=== PATIENT | female | born 1985 | race African-American/Black ===

== ENCOUNTER 2016-07-25 08:25 | Emergency (ER) | payer OTHER ==
[2016-07-25 08:45] VITALS: BP 120/75; PULSE 76; TEMP 98.3; BMI 34.4
[2016-07-25 09:57] LABS: BASOPHIL 0.8 % (0-2.0); EOSINOPHIL 0.7 % (0-4.5); MCH 28.2 pg (25.7-33.7); MCHC 33.6 g/dl (32.0-36.0); MEAN CELL VOLUME 83.9 fl (80-96); MEAN PLT VOLUME 7.5 fl (7.5-11.1); NEUTROPHILS 67.1 % (42.8-82.8); PLATELET COUNT 364 K/MM3 (134-434); RDW 14.6 % (11.6-15.6); WHITE BLOOD COUNT 6.6 K/mm3 (4.0-10.0)
--- NOTE | 2016-07-25 09:57 | PDOC ---
History of Present Illness - General Chief Complaint: Vaginal Bleeding Stated Complaint: VAGINAL BLEEDING(5 WKS ) Time Seen by Provider: 07/25/16 09:03 History Source: Patient Exam Limitations: No Limitations - History of Present Illness Travel History: No Initial Comments: 07/25/16 10:23 Patient states last normal menstrual period was June 20, when after 2 weeks was feeling breast tenderness, bloating, and some nausea with tiredness was concerned about possible . States took 2 home tests that prove positive. Last states had some spotting, but woke up this morning with cramping and a "gush of blood" vaginally with some noted clots and gelatinous tissue noted in toilet. Denies fever, any recent trauma or exercise changes, no problems with bowels or bladder. Has some abdominal cramping persistent with bleeding and wonders if possible miscarriage. 4 para 2 spontaneous Ab1 3 years ago. 07/25/16 10:24 Timing/Duration: reports: getting worse Quality: reports: mild, moderate, cramping Pain Radiation: reports: no radiation Activities at Onset: reports: none Past History - Travel Traveled outside of the country in the last 30 days: No Close contact w/someone who was outside of country & ill: No - Past Medical History Allergies/Adverse Reactions: Allergies Allergy/AdvReac Type Severity Reaction Status Date / Time No Known Allergies Allergy Verified 07/25/16 08:42 Home Medications: Ambulatory Orders NK [No Known Home Medication] 07/25/16 Asthma: No Cancer: No Cardiac Disorders: No Diabetes: No HTN: No Seizures: No Thyroid Disease: No Other medical history: none - Surgical History Abdominal Surgery: Yes (hernia repair) - Reproductive History (#): 4 Para: 1 Therapeutic (s) & number: Yes (1) Spontaneous : 1 - Immunization History Td Vaccination: Yes Immunization Up to Date: Yes - Psycho/Social/Smoking Cessation Hx Anxiety: No Suicidal Ideation: No Smoking Status: No Smoking History: Never smoked Years of Tobacco Use: 0 Have you smoked in the past 12 months: No Number of Cigarettes Smoked Daily: 0 Cigars Per Day: 0 Information on smoking cessation initiated: No Hx Alcohol Use: No Drug/Substance Use Hx: No Substance Use Type: None Hx Substance Use Treatment: No Review of Systems - Review of Systems Able to Perform ROS?: Yes Is the patient limited Nauruan proficient: Yes Constitutional: Yes: Symptoms Reported, See HPI, Malaise HEENTM: Yes: Symptoms Reported, See HPI Respiratory: Yes: Symptoms reported ABD/GI: Yes: Symptoms Reported : Yes: Symptoms Reported, See HPI All Other Systems: Reviewed and Negative *Physical Exam - Vital Signs Last Vital Signs Temp Pulse Resp BP Pulse Ox 98.3 F 76 18 120/75 100 07/25/16 08:42 07/25/16 08:42 07/25/16 08:42 07/25/16 08:42 07/25/16 08:42 - Physical Exam General Appearance: Yes: Nourished, Appropriately Dressed, Apparent Distress, Mild Distress HEENT: positive: VERNON, Normal ENT Inspection, TMs Normal, Pharynx Normal Neck: positive: Tender, Supple Respiratory/Chest: positive: Lungs Clear, Respiratory Distress Cardiovascular: positive: Regular Rate Female Pelvic Exam: positive: normal external exam, discharge, vaginal bleeding. negative: cervical os closed (uncertain / soft cervix, ), CMT Gastrointestinal/Abdominal: positive: Tender (mild tenderness to suprapubic ), Soft Musculoskeletal: positive: Normal Inspection. 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 *DC/Admit/Observation/Transfer Diagnosis at time of Disposition: Vaginal bleeding before 22 weeks gestation - Discharge Dispostion Disposition: HOME Condition at time of disposition: Stable Admit: No - Referrals Referrals: STAFF,NOT ON [Primary Care Provider] - Freedom Marino MD [Staff Physician] - - Patient Instructions Printed Discharge Instructions: DI for Vaginal Bleeding During Additional Instructions: Will need to return to emergency department this weekend - 2 days- for repeat beta hCG and ultrasound to confirm intrauterine versus a miscarriage. 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
[2016-07-25 10:06] LABS: URINE APPEARANCE CLEAR; URINE BILIRUBIN NEGATIVE (NEGATIVE); URINE COLOR YELLOW; URINE GLUCOSE (UA) NEGATIVE (NEGATIVE); URINE KETONE NEGATIVE (NEGATIVE); URINE LEUK ESTERASE NEGATIVE (NEGATIVE); URINE NITRITE NEGATIVE (NEGATIVE); URINE UROBILINOGEN NEGATIVE E.U./dl (0.2-1.0)
[2016-07-25 10:46] LABS: URINE BLOOD 3+ (NEGATIVE); URINE PROTEIN 1+ (NEGATIVE)
[2016-07-25 11:11] LABS: URINE BACTERIA RARE /hpf (NONE SEEN); URINE MUCUS RARE; URINE RBC 728 /hpf (0-3); URINE WBC 7 /hpf (3-5)
== END 2016-07-25 12:18 | disposition home or self-care (01) ==
LOC: JERFT 08:25
DX: O20.8 Other hemorrhage in early pregnancy (principal); Z3A.01 Less than 8 weeks gestation of pregnancy
CPT/HCPCS: 36415; 76817-TC; 76856-TC; 81003; 81015; 84702; 85025; 86850; 86900; 86901; 99281-25

== ENCOUNTER 2019-04-11 09:09 | Emergency (ER) | payer OTHER ==
[2019-04-11 09:22] VITALS: BP 124/79; PULSE 88; TEMP 98.6; BMI 37.5
--- NOTE | 2019-04-11 09:29 | PDOC ---
History of Present Illness - General Chief Complaint: Vaginal Bleeding Stated Complaint: 6 W PREG/VAG BLEEDING Time Seen by Provider: 04/11/19 09:28 - History of Present Illness Initial Comments: The pt is a 33F at approx 6wks by LMP who presents for evaluation of 1 day fo pelvic cramping and vaginal bleeding. The pt reports going to the bathroom last night and seeing blood in the toilet with a sac-like structure. She states the bleeding and cramping has since resolved. Denies fevers/chills, chest pain, N/V/C/D, dysuria, trouble breathing 04/11/19 09:57 Past History - Past Medical History Allergies/Adverse Reactions: Allergies Allergy/AdvReac Type Severity Reaction Status Date / Time No Known Allergies Allergy Verified 07/25/16 08:42 Home Medications: Ambulatory Orders Cephalexin Monohydrate [Keflex -] 500 mg PO Q6H #28 capsule 04/11/19 Asthma: No Cancer: No Cardiac Disorders: No Diabetes: No HTN: No Seizures: No Thyroid Disease: No - Surgical History Abdominal Surgery: Yes (hernia repair) - Reproductive History (#): 4 Para: 1 Therapeutic (s) & number: Yes (1) Spontaneous : 1 - Immunization History Td Vaccination: Yes Immunization Up to Date: Yes - Psycho Social/Smoking Cessation Hx Smoking Status: No Smoking History: Never smoked Years of Tobacco Use: 0 Have you smoked in the past 12 months: No Number of Cigarettes Smoked Daily: 0 Cigars Per Day: 0 Hx Alcohol Use: No Drug/Substance Use Hx: No Substance Use Type: None Hx Substance Use Treatment: No Review of Systems - Review of Systems Able to Perform ROS?: Yes Comments:: GENERAL/CONSTITUTIONAL: No fever or chills. No weakness HEAD, EYES, EARS, NOSE AND THROAT: No change in vision. No change in hearing. No sore throat CARDIOVASCULAR: No chest pain or shortness of breath RESPIRATORY: Denies cough, hemoptysis GASTROINTESTINAL: No nausea, vomiting, diarrhea or constipation GENITOURINARY: No dysuria MUSCULOSKELETAL: No joint or muscle swelling or pain. No neck or back pain SKIN: No rash NEUROLOGIC: No headache, vertigo, loss of consciousness, or change in strength/ sensation ENDOCRINE: No increased thirst. No abnormal weight change HEMATOLOGIC/LYMPHATIC: No anemia, easy bleeding, or history of blood clots ALLERGIC/IMMUNOLOGIC: No hives or skin allergy 04/11/19 09:28 Is the patient limited Kosovan proficient: No *Physical Exam - Vital Signs Last Vital Signs Temp Pulse Resp BP Pulse Ox 98.6 F 88 16 124/79 99 04/11/19 09:20 02 09:20 02 09:20 04/11/19 09:20 04/11/19 09:20 - Physical Exam GENERAL: Awake, alert, and oriented to person/place/time, in no acute distress HEAD: No signs of trauma, normoc ephalic, atraumatic EYES: PERRLA, EOMI, sclera anicteric, conjunctiva clear ENT: Hearing grossly normal, nares patent, oropharynx clear without exudates. Moist mucosa LUNGS: No distress, speaks in full sentences, clear to auscultation bilaterally HEART: Regular rate and rhythm, normal S1 and S2, no murmurs appreciated, peripheral pulses normal and equal bilaterally ABDOMEN: Soft, nontender, normoactive bowel sounds. No guarding, no rebound EXTREMITIES: Normal inspection, Normal range of motion, no edema. No clubbing or cyanosis NEUROLOGICAL: Cranial nerves II through XII grossly intact. Normal speech, normal gait, no focal sensorimotor deficits SKIN: Warm, Dry Pelvic External genitalia unremarkable. Speculum exam with fluid in vaginal vault w/o blood, also evidence of yeast infection seen Cervical os open w/o CMT 04/11/19 09:28 ED Treatment Course - LABORATORY CBC & Chemistry Diagram: 04/11/19 09:40 04/11/19 09:40 - RADIOLOGY Radiograph Interpretation: US/TRANSVAGINAL US PREG LMP: 02/21/2019 Compared to prior examination dated 07/25/2016 The uterus is gravid measuring 11.8 x 7.5 m in sagittal and AP dimension. An intrauterine gestational sac like structure is present with a tiny yolk sac and pole are identified. Yolk sac measures 2 mm. pole measures 6 mm compatible with 6 weeks 3 days of gestation. heart rate is 120 bpm There is an anterior myometrial mass in the uterine body measuring 2.4 x 2.2 cm and another anterior myometrial mass measuring 2.3 x 2 cm compatible with fibroids. Normal-appearing left ovary measuring 4.1 x 1.8 cm with normal vascular flow. Normal appearing right ovary measuring 3.1 x 1.8 cm with normal vascular flow. There is no free fluid in the cul-de-sac IMPRESSION: Single live intrauterine with estimated gestational age of 6 weeks 3 days. Fibroid uterus. Both ovaries appear unremarkable with normal vascular flow 04/11/19 11:32 Medical Decision Making - Medical Decision Making The pt is a 33F at approx 6wks by LMP who presents for evaluation of 1 day fo pelvic cramping and vaginal bleeding. ED Course Labs sent Fluconazole for candidiasis TVUS 04/11/19 10:11 UA w/ asymptomatic bactiuria -Will treat with Keflex 500mg Q6H for 7 days Rh + TVUS w/ single IUP at 6wks and 3 days with FHT 120 Pt w/o active bleeding Plan for D/C w/ OBGYN f/u Discharge instructions and return precautions given Patient in agreement and verbalized understanding Dispo: Home 04/11/19 11:39 Discharge - Discharge Information Problems reviewed: Yes Clinical Impression/Diagnosis: Vaginal candidiasis, Threatened Disposition: HOME - Admission No - Additional Discharge Information Prescriptions: Cephalexin Monohydrate [Keflex -] 500 mg PO Q6H #28 capsule - Follow up/Referral Referrals: Miguel Ackerman MD [Primary Care Provider] - Yaya Gant MD [Staff Physician] - - Patient Discharge Instructions Patient Printed Discharge Instructions: DI for Threatened , DI for Urinary Tract Infection (UTI) Additional Instructions: You were seen in the Emergency Department for evaluation for vaginal bleeding. Your ultrasound was notable for a intrauterine . It is possible that you will have a miscarriage in the next few days. You were also found to have a urinary tract infection, a prescription for Keflex was sent to your pharmacy, take 4 times a day for the next 7 days. It is important to follow up with your OBGYN or the OBGYN referral provided this week. Review the handout provided at discharge. Return to the Emergency Department if you develop recurrent bleeding, worsening cramping, dizziness, chest pain, trouble breathing, fevers, worsening symptoms, or any new/concerning symptoms. - Post Discharge Activity
[2019-04-11] MEDS ORDERED: FLUCONAZOLE 50 MG TABLET PO ONE (10:10)
[2019-04-11 10:14] LABS: BASO % 0.8 % (0-2.0); EOS % 1.9 % (0-4.5); HEMATOCRIT 38.9 % (32.4-45.2); MCH 28.6 pg (25.7-33.7); MCHC 33.5 g/dl (32.0-36.0); MEAN CELL VOLUME 85.5 fl (80-96); MEAN PLT VOLUME 7.7 fl (7.5-11.1); NEUT % 67.3 % (42.8-82.8); PLATELET COUNT 401 K/MM3 (134-434); RBC 4.54 M/mm3 (3.60-5.2); RDW 14.3 % (11.6-15.6); WHITE BLOOD COUNT 8.2 K/mm3 (4.0-10.0)
[2019-04-11] MEDS ORDERED: FLUCONAZOLE 150 MG TABLET PO ONE (10:35)
[2019-04-11 10:49] LABS: ALBUMIN 3.6 g/dl (3.4-5.0); BILIRUBIN,TOTAL 0.4 mg/dL (0.2-1); BLOOD UREA NITROGEN 9.2 mg/dL (7-18); CALCIUM 9.1 mg/dL (8.5-10.1); CREATININE 0.8 mg/dL (0.55-1.3); POTASSIUM 3.8 mmol/L (3.5-5.1); TOT PROT 7.7 g/dl (6.4-8.2)
[2019-04-11 11:15] LABS: EPI CELLS 19.6 /HPF (0-5/HPF); HYALINE CASTS 13 /lpf (0-8); PH,URINE 7.5 (5.0-8.0); URINE APPEARANCE CLOUDY; URINE BACTERIA 1159.3 /hpf (NEGATIVE); URINE BILIRUBIN NEGATIVE (NEGATIVE); URINE COLOR YELLOW; URINE GLUCOSE (UA) NEGATIVE (NEGATIVE); URINE KETONE NEGATIVE (NEGATIVE); URINE LEUK ESTERASE NEGATIVE (NEGATIVE); URINE NITRITE NEGATIVE (NEGATIVE); URINE PROTEIN NEGATIVE (NEGATIVE); URINE RBC 5 /hpf (0-4); URINE WBC 3 /hpf (0-5)
--- NOTE | 2019-04-11 11:40 | PDOC ---
Documentation entered by Mike Ryan SCRIBE, acting as scribe for Israel Gonzalez MD. Israel Gonzalez MD: This documentation has been prepared by the Connor oliveira Nirvannie, SCRIBE, under my direction and personally reviewed by me in its entirety. I confirm that the documentation accurately reflects all work, treatment, procedures, and medical decision making performed by me. Attending Attestation - Resident Resident Name: Marco Johnson - ED Attending Attestation I have performed the following: I have examined & evaluated the patient, The case was reviewed & discussed with the resident, I agree w/resident's findings & plan, Exceptions are as noted - HPI HPI: 04/11/19 10:40 The patient is a 33 year old approximately 6 weeks female , with no significant past medical history, who presents to the emergency department with complaints of abd cramping/bleeding since last night lasting for approximately 2 hours and then she passed a red mass into the toilet. She came for evaluation today denies any current symptoms. Denies any fever, chills, nausea, vomiting, back pain, current.abdominal pain, palpitations, current vaginal bleeding. 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 ABDOMEN: Soft, nontender, No guarding, no rebound. No CVA tenderness - Medical Decision Making 04/11/19 11:38 Patient's blood work was reviewed. 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
== END 2019-04-11 12:01 | disposition home or self-care (01) ==
LOC: JER 09:09
DX: O26.891 Other specified pregnancy related conditions, first trimester (principal); O20.0 Threatened abortion; O98.811 Other maternal infectious and parasitic diseases complicating pregnancy, first trimester; B37.3 Candidiasis of vulva and vagina; Z3A.01 Less than 8 weeks gestation of pregnancy
CPT/HCPCS: 36415; 76817-TC; 80053; 81003; 84702; 85025; 86850; 86900; 86901; 87086; 99284-25